=== PATIENT | male | born 1990 | race Caucasian/White ===

== ENCOUNTER 2017-06-22 09:02 | Inpatient (IN) | payer OTHER ==
[~2017-06-22] VITALS: Ht 182.9 cm; Wt 64.9 kg
--- NOTE | ~2017-06-22 | INDIVTXPLN ---
"PATIENT: GARY RDZ T | | [facility] UNIT #: [id number] | [address] AGE/SEX: 27 M : [birth year] | [address] | [place] [phone] ADMIT/REG DATE: 06/22/17 | ROOM: A.8 LOC: ADTC | ADTC | Individualized Treatment Plan Date: 05 JULY 2017 Problem Statement/Issue Identified: GARY NEEDS TO IDENTIFY POTENTIAL RELAPSE TRIGGERS AND ISSUES. Goal: GARY WILL DEVELOP A PLAN TO DEAL WITH THESE TRIGGERS/ISSUES EFFECTIVELY TO AVOID RELAPSE. Objectives/Activities to achieve goal: 1. Gary will complete RELAPSE PREVENTION packet identifying specific triggers and a plan to deal with them effectively. He will process his work with his primary counselor. Due Date: Complete: Incomplete: 2. Gary will contact his sponsor each week to let him know how treatment is progressing. Due Date: Complete: Incomplete: Client signature Date Counselor signature Date Outcome/Measurement of Progress Towards Goal: Counselor's signature Date "
--- NOTE | ~2017-06-22 | INDIVTXPLN ---
"PATIENT: GARY RDZ T | | [facility] UNIT #: [id number] | [address] AGE/SEX: 27 M : [birth year] | [address] | [place] [phone] ADMIT/REG DATE: 06/22/17 | [facility]: [facility] LOC: ADTC | ADTC | Individualized Treatment Plan Date: 05 JULY 2017 Problem Statement/Issue Identified: GARY HAS HURT AND ANGER RESULTING FROM UNRESOLVED FAMILY OF ORIGIN ISSUES. Goal: GARY WILL IDENTIFY AND PROCESS THESE FEELINGS TO ENCOURAGE HEALING. Objectives/Activities to achieve goal: 1. Gary will write FEELINGS LETTERS to mom and to dad. He will process his work with his primary counselor and peer group. Due Date: Complete: Incomplete: 2. Gary will write a FEELINGS LETTER to his Significant Other and will process it with her in Family Group. Due Date: Complete: Incomplete: Client signature Date Counselor signature Date Outcome/Measurement of Progress Towards Goal: Counselor's signature Date "
--- NOTE | ~2017-06-22 | CLPRLASSUM ---
"PATIENT: LUCIAN RDZ T | | [facility] UNIT #: [id number] | [address] AGE/SEX: 27 M : 89 | [address] | [place] [phone] ADMIT/REG DATE: 06/22/17 | ROOM: [facility] LOC: ADTC | ADTC | Client Problem List/Assessment Summary Date: 29 JUNE 2017 Problems identified by the client: PRIMARY SUPPORT GROUP, LEGAL, OCCUPATIONAL, FAMILY OF ORIGIN ISSUES Problems identified by significant others: SAME ABOVE Client's Strengths as Identified by Client: POSITIVE, FAST LEARNER Problem List: Verna EPSTEIN'S ONGOING CHEMICAL ABUSE HAS RESULTED IN PROBLEMS IN ALL AREAS OF HIS LIFE AND HAVE LED HIM TO CRIMINAL THINKING, INCARCERATION, [facility] [place] [facility] AND A LEGAL RECORD. Verna EPSTEIN WILL NEED TO IDENTIFY POTENTIAL TRIGGERS/ISSUES AND DEVELOP A PLAN ON HOW TO DEAL WITH THEM TO AVOID A RELAPSE. Verna EPSTEIN VERBALIZES GUILT AND SHAME FOR HIS ONGOING USE THAT HAS CAUSED PAIN AND WORRY FOR HIS SIGNIFICANT OTHER. Verna EPSTEIN HAS UNRESOLVED HURT AND ANGER RESULTING FROM FAMILY OF ORIGIN ISSUES. Code Mitchell: T: to be addressed during course of treatment O: problem noted, expected to resolve itself with abstinence--specific tx plan not required R: problem noted, will be referred upon discharge PRIMARY COUNSELOR: MARIA DE JESUS ROCHA [facility]"
--- NOTE | ~2017-06-22 | TXPLANREV ---
"PATIENT: LUCIAN RDZ | | [facility] UNIT #: [id number] | [address] AGE/SEX: 27 M : 89 | [address] | [place] [phone] ADMIT/REG DATE: 06/22/17 | ROOM: [facility] LOC: ADTC | ADT | Treatment Plan/Staffing Review Date: 06 JULY 2017 Treatment plan was reviewed and determined appropriate as written: TREATMENT PLAN IS APPROPRIATE WRITTEN. Treatment plan was reviewed and the following changes/addition/deletions are necessary: ADDITIONAL TX PLANS WERE CREATED TO ADDRESS FAMILY OF ORIGIN ISSUES, RELAPSE & GUILT AND SHAME. Discharge plans were reviewed and determined appropriate as previously documented: NONE DOCUMENTED PREVIOUSLY. Discharge plans were reviewed and determined to be as follows: CLIENT AGREES TO DO RECOMMENDED AFTERCARE AT [facility] OFFICE WITH RYLEY. TENTATIVE DISCHARGE DATE IS 18 JUNE 2017 FOLLOWING FAMILY GROUP SO THAT CLIENT'S SIGNIFICANT OTHER DOESN'T HAVE TO MAKE ANOTHER TRIP FROM [facility] ON 06/19. Other pertinent issues discussed during this staffing review include: CLIENT IS COMPLIANT AND SHOWS THAT HE IS GAINING INSIGHT AND UNDERSTANDING OF THE POWER OF HIS ADDICTION. CLIENT HAS COMPLETED STEP ONE AND WILL PROCESS ASSIGNED PAGES WITH HIS PEERS. CLIENT IS WORKING ON FEELINGS LETTERS & SPIRITUALITY. HE HAS PROVEN TO BE A GOOD ROLE MODEL. Staff Present: MAUDE LEE PRIMARY COUNSELOR: MARIA DE JESUS ROCHA [facility] Client Signature Counselor Signature Date Time "
--- NOTE | ~2017-06-22 | RESCARESUM ---
"PATIENT: LUCIAN RDZ T | | [facility] UNIT #: [id number] | 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 CLIENT APPEARED TO GAIN MORE INSIGHT AND BETTER UNDERSTANDING OF THE POWER OF ADDICTION TO DISTORT HIS THINKING AND PERCEPTIONS. Continued Obstacles to Sobriety/Relapse Issues: LACK OF HEALTHY FAMILY SUPPORT; MOM IS STILL ACTIVE METH ADDICT. SIGNIFICANT OTHER DID ATTEND FAMILY EDUCATION SESSIONS. APPEARS SUPPORTIVE. Family Issues Addressed: CLIENT WROTE FEELINGS LETTERS TO EACH OF HIS PARENTS, BUT NEITHER WAS IN ATTENDENCE. Y Individual Therapy Y Group Therapy Y Educational Series on Substance Abuse Y Parents/Significant Others Attended Family Program N Acute Medical Problems During the Course of Treatment Y Accepting of Substance Abuse Problem Completed AA Step # ONE During This Level of Care Significant Incidences During Treatment: NONE Reason For Discharge: Y Completed Residential TX Goals and Ready For Next Level of Care Continuing Care Plan/Recommendations: Y Sponsor Y AA Meetings/NA Meetings Y Outpatient Y [facility] 4-6 MONTHS (SEE SPECIFICS BELOW) PATIENT: LUCIAN RDZ | | [facility] UNIT #: [id number] | [address] AGE/SEX: 27 M : 89 | [address] | [place] [phone] ADMIT/REG DATE: 06/22/17 | [facility] LOC: ADTC | ADT | Summary of Residential Care Specific Continuing Care Plan: CLIENT WILL ENTER [facility] UPON DISCHARGE FROM [facility]. HE WILL RESIDE THERE AND COMPLY WITH ALL GUIDELINES FOR THE NEXT FOUR TO SIX MONTHS. CLIENT WILL COMPLETE OUTPATIENT AFTERCARE, RECOMMENDED, AT [facility] ATTENDING BOTH INDIVIDUAL AND GROUP SESSIONS SCHEDULED. CLIENT WILL ATTEND AT LEAST THREE AA/NA MEETINGS PER WEEK DURING PHASE ONE OF DRUG COURT AND TWO EACH WEEK THERE AFTER. HE WILL HAVE ONE ON ONE CONTACT WITH HIS SPONSOR AT LEAST TWO TIMES EACH WEEK DURING THE DURATION OF HIS OUTPATIENT TREATMENT. PRIMARY COUNSELOR: MARIA DE JESUS ROCHA [facility]"
--- NOTE | ~2017-06-22 | INDIVTXPLN ---
"PATIENT: GARY RDZ T | | [facility] UNIT #: [id number] | [address] AGE/SEX: 27 M : 89 | [address] | [place] [phone] ADMIT/REG DATE: 06/22/17 | ROOM: [facility] LOC: ADTC | ADTC | Individualized Treatment Plan Date: 29 JUNE 2017 Problem Statement/Issue Identified: GARY'S ONGOING CHEMICAL ABUSE HAS RESULTED IN PROBLEMS IN ALL AREAS OF HIS LIFE AND HAS PRODUCED CRIMINAL THINKING THAT HAS LED TO LEGAL CHARGES, INCARCERATION AND [facility] [place] [facility]. Goal: GARY WILL BE WILLING TO EXAMINE THE NEGATIVE CONSEQUENCES OF HIS ALCOHOL/DRUG USE AND WORK TO LIVE HIS LIFE WITHOUT RELYING ON CHEMICALS. Objectives/Activities to achieve goal: 1. Gary will complete GETTING STARTED IN TREATMENT identifying his feelings about being in treatment and sharing a brief life history. Gary will process his work with his primary counselor and selected pages with his peer group. Due Date: Complete: Incomplete: 2. Gary will read My Mega BookstoreArianaRecorridoIN highlighting those characteristics/behaviors that he can relate to in his own life patterns. He will discuss these and any insights gained with his primary counselor. Due Date: Complete: Incomplete: 3. Gary will complete an honest and thorough STEP ONE. He will identify specific examples of preoccupation, high risk behaviors and values compromised. Gary will process his work and any insight gained with his primary counselor and selected pages with his peer group. Due Date: Complete: Incomplete: 4. Gary will complete MY CHANGE PLAN. He will process his work and any insight gained with his primary counselor. Due Date: Complete: Incomplete: Client signature Date Counselor signature Date Outcome/Measurement of Progress Towards Goal: Counselor's signature Date "
--- NOTE | ~2017-06-22 | TXPLANREV ---
"PATIENT: LUCIAN RDZ | | [facility] UNIT #: [id number] | [address] AGE/SEX: 27 M : 89 | [address] | [place] [phone] ADMIT/REG DATE: 06/22/17 | ROOM: [facility] LOC: ADTC | ADTC | Treatment Plan/Staffing Review Date: 2016 Treatment plan was reviewed and determined appropriate as written: TREATMENT PLAN IS APPROPRIATE WRITTEN. Treatment plan was reviewed and the following changes/addition/deletions are necessary: NO ADDITIONAL PLANS HAVE BEEN CREATED. Discharge plans were reviewed and determined appropriate as previously documented: TENTATIVE DISCHARGE DATE IS 2016. Discharge plans were reviewed and determined to be as follows: CLIENT HAS APPLIED FOR A BED AT THE [facility] AND NEEDS TO COME UP WITH A DEPOSIT TO HOLD THE BED. Other pertinent issues discussed during this staffing review include: CLIENT APPEARS TO BE COMPLIANT AND MAKING PROGRESS. CONVERSATION WITH DRUG COURT DIRECTOR MAINE BRAY INDICATED THAT THEY WANTED HIM TO GO TO SOBER LIVING FOLLOWING COMPLETION OF RESIDENTIAL TREATMENT RATHER THAN BACK TO [place]. CLIENT IS DISAPPOINTED BUT COMPLIANT AND HAS MADE APPLICATION. HE IS WORKING ON FEELINGS LETTERS & STINBONOE THINKIN. Staff Present: BAILEY VILLEGAS PRIMARY COUNSELOR: MARIA DE JESUS ROCHA [facility] Client Signature Counselor Signature Date Time "
--- NOTE | 2017-06-22 14:43 | NUR ---
Admit Note: Client is 27 y/o single male living in [place] with significant other. His DOC is meth and was referred by Drug Court. Said he hasn't meth in 1 year. Smoked 1 bowl of pot in February and drank 6 shots of vodka 1 week ago. His significant other is expected to be in family sessions. Client stated that father lives in [place] and mother is in active addiction and he's not sure where she is.
--- NOTE | 2017-06-22 21:54 | NUR ---
Education: 1 hour lecture given by counselor on "resentments"
--- NOTE | 2017-06-22 23:24 | NUR ---
Client did beads for rec, Guided Meditation, and attended the on unit A.A.Meeting. SE: First day in Treatment
--- NOTE | 2017-06-23 04:47 | NUR ---
Bed Note: Client was in bed, motionless, and in no distress at all bed checks
--- NOTE | 2017-06-23 09:57 | NUR ---
Tech Notes: Client is working on BB
--- NOTE | 2017-06-23 10:00 | NUR ---
Client was oriented to purpose and rules of group.
--- NOTE | 2017-06-23 11:30 | NUR ---
PEER REVIEW 1.5 HRS. Client participated in peer review exercise and took risk to give honest and direct feedback. Client did an excellent job for his first time.
--- NOTE | 2017-06-23 13:11 | NUR ---
Education note: Client attended speaker for education.
--- NOTE | 2017-06-23 15:00 | NUR ---
SPIRITUALITY 1 HR: Clt participated in an exercise in the park, along with filling out a paper on what a Higher Power means to them.
--- NOTE | 2017-06-23 15:28 | NUR ---
IS 1 HR. Client was seen due to his primary counselor's absence. He was oriented to the treatment process. He verbalized an understanding of initial treatment plan, signed and was given a copy. He reports he has been in drug court approx. 9 mos. He completed OP treatment at [facility] in [place]. He admits he has continued to use alcohol. He identified drug of choice to be meth and has abstained from it for approx. 1 year. Last use of marijuana was 02/28/17 when he was drinking. He identifies his girlfriend as support and other family live out of state. Client was given permission to call her about visiting hours. He was advised to begin work on HOW TO GET STARTED IN TREATMENT and reading from the big book.
--- NOTE | 2017-06-23 18:42 | NUR ---
Education note: Client did one hour of education on the disease concept.
--- NOTE | 2017-06-23 22:52 | NUR ---
Tech Note: Client Walked a mile for rec and attended the on unit N.A.Meeting. SE: Peer Review/Walks
--- NOTE | 2017-06-24 04:13 | NUR ---
Bed bote; Client was motionless with eyes closed at all bed checks.
--- NOTE | 2017-06-24 12:19 | NUR ---
Group 1.5 Ratio 1:12/Topics today were orientating a new member to group rules and goals and grumbling about the legal system not being fair. Client shared what got him here and his initial plans to complete drug court and moving away from [place].
--- NOTE | 2017-06-24 15:10 | NUR ---
INDIVIDUAL SESSION 1 HR: Met with this client for the first time and welcomed him to treatment. It is his first treatment. Client identifies meth as his DOC. Client was referred by [facility]. He has been in [place] for 9 months and has had three positive UAs. Client very receptive and displays appropriate guilt and shame. Client said both parents are chemically dependent, splitting up when client was 6 y/o. Client has a girlfriend that he was living with so is apparently approved by [place]. Client encouraged to work on GETTING STARTED IN TREATMENT packet. Appointment 06/28.
--- NOTE | 2017-06-24 15:42 | NUR ---
Client participated in Spiritual Enrichment. Client went for an outdoor walk for afternoon exercise. Client stated that he is working on, "How to Get Started in Treatment."
--- NOTE | 2017-06-24 15:52 | NUR ---
Education: Client attended a session hosted by members of the recovery community who shared their experience, strength and hope.
--- NOTE | 2017-06-24 16:10 | NUR ---
Step education 1 hr/ Focus was on step 9 making direct amends. Each person answered a set of questions on paper and then we discussed. The relationship that bothers him most is with his grandparents who disowned him and with his mom who he used with. He said he feels he has forgiven his mom.
--- NOTE | 2017-06-24 18:14 | NUR ---
FAMILY CONTACT: Talked with client's Significant Other. She will arrange for time off but will not likely start until 07/15 due to work.
--- NOTE | 2017-06-24 18:24 | NUR ---
Education: 1 Hour. Client attended Jose Lara video " Unhealthy Boundaries."
--- NOTE | 2017-06-24 22:22 | NUR ---
Tech note : Client went on a mile and a half long walk, participated in guided meditation and went to an onsite AA meeting. SE; Group
--- NOTE | 2017-06-25 04:21 | NUR ---
tech note: client was motionless in no distress at all bed checks.
--- NOTE | 2017-06-25 12:00 | NUR ---
Group 1.5 hr/ 22:2 Clients had big group to discuss what is giving and getting feedback, group dynamics and how to listen and not get defensive. Some role-playing was used by counselors. This client was attentive and said he likes the peer but this group was pretty intense and uncomfortable.
--- NOTE | 2017-06-25 14:00 | NUR ---
Afternoon Group, 1.0 hours, 11/18 ratio, Client attended and actively participated in group which consisted of homework shared and discussion of taking suggestions from others while in treatment. Client listened while others shared.
--- NOTE | 2017-06-25 15:25 | NUR ---
Tech Note: Client attended speaker meeting with volunteer Jaime Reddy Client is working on Getting Started.
--- NOTE | 2017-06-25 20:57 | NUR ---
Tech note: client watched tv and movies Attended optional offsite AA meeting SE:group
--- NOTE | 2017-06-26 04:30 | NUR ---
Bed note: client was in bed with eyes closed and no distress at all bed checks.
--- NOTE | 2017-06-26 13:13 | HP ---
ADMIT: 06/22/2017 RM/LOC: [facility] MR#: [id number] [address] [facility] [address] [place] [id number] LU[address]Z [address] [place] [id number] History and Physical SEX: M AGE: 27 : 1990 DATE OF SERVICE: CHIEF COMPLAINT: Drug problem. CLINICAL HISTORY: The patient is a 27-year-old white male, from [place], [place], who was admitted to the residential care program as a portion of his Drug Court agreement. The patient was arrested for multiple charges including predominantly possession of methamphetamine as well as felony attempted strangulation and domestic violence. He opted to go through Drug Court and actually has been clean and sober now for approximately 1 year, having not used any methamphetamine since June of 2016, but did relapse on 1 occasion on pot in February of 2017, and recently relapsed on alcohol. He comes to treatment for the first time having had no prior treatment. He notes he has been attending NA and AA for the past year as a portion of his Drug Court agreement. He readily admits that he has a drug problem. He notes that methamphetamine is his drug of choice. He first started using meth at age 23 and was a daily user from age 23 to age 26, typically doing a half to 1 g per day, usually smoking it. He denies any IV drug use. He notes his second drug of choice is marijuana. He first started smoking pot at age 17 and was a daily pot user from age 17 to 23. He notes his pot use dropped off significantly after he started using meth and was only using pot occasionally, used to smoke up to as much as a quarter ounce per week. He notes that alcohol would be his third drug of choice. In the past, he used to drink once or twice a week. He notes since he has been on Drug Court, he has been trying not to drink, but he has drank on about 3 occasions over the past year. In addition to his meth, pot, and alcohol use, he notes he has tried cocaine once at age 20. He experimented with acid once at age 19. He notes over the last couple of years of his meth use, he has been abusing Adderall on about 10 to 12 occasions over 2 years' time. Usually, was using Adderall to supplement the meth that he was on. He notes he has had no prior treatment. He has had previous legal charges related to his drug use and has been in senior living at least 5 or 6 times over the last 5 years, and as noted, he comes to treatment as a portion of his Drug Court agreement. Treatment precipitated by his recent relapse on alcohol and marijuana. PAST MEDICAL HISTORY: Previous hospitalizations: None. Operations: None. Current medications: None. Allergies: He is allergic to penicillin and sulfa drugs. Medical illnesses: He denies any chronic health problems. Denies any long- term medical illnesses. He is noted to be a smoker, typically smoking a pack a day, but denies any respiratory complaints. REVIEW OF SYSTEMS: A 12-point review of systems is negative except for his ongoing illicit drug use as well as his cigarette smoking. ADMIT: 06/22/2017 RM/LOC: [facility] MR#: [id number] [address] [place] [id number] [address] [address] History and Physical SEX: M AGE: 27 : 1990 SOCIAL HISTORY: The patient is single. He has been with his current girlfriend for the past 4 years. They had been living together up until [address] made him moved into the [facility] in [place] 3 months ago, where he has been residing for the past 3 months. The patient currently has been working 2 jobs. 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 He works part-time at [employer]. 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 He notes he has been unemployed for the past year as a portion of his Drug Court agreement. The patient notes he dropped out of high school in the 11th grade, but he did get his GED. FAMILY HISTORY: The patient notes his parents when he was age 6. He has 2 full siblings, a brother and a sister. He has 2 half-siblings. He notes his father lives in [place], [place], and is an active alcoholic. He notes his mother lives in [place]; she is an active meth addict. There is a strong history of substance abuse and chemical dependency on both sides of his family. PHYSICAL EXAMINATION: VITAL SIGNS: Temp is 97.5, pulse 59, respirations 14, and blood pressure 109/70. Height 6 feet, weight 140 pounds. GENERAL: The patient is a very thin 27-year-old white male, who appears younger than his stated age. He is in no acute distress. He is oriented x3. HEENT: Reveals his ears to be clear. Nose and throat are noninflamed. Dentition is in poor repair. Very poor dentition. Typical meth mouth with periodontal disease and numerous carious teeth. NECK: Supple. Thyroid not enlarged. No cervical adenopathy. LUNGS: Noted to be clear. HEART: Regular rhythm without murmur. ABDOMEN: Soft. Nontender. No masses. No organomegaly. No hernias. Bowel sounds are normoactive. He has no CVA or suprapubic tenderness. EXTREMITIES: Today are noted to have no edema. No clubbing or cyanosis. No calf tenderness. NEUROLOGICAL: He is intact with no focal deficits. Balance and gait are normal. MENTAL STATUS EXAMINATION: He is pleasant, cooperative. Affect is appropriate. No bizarre ideation. No delusions. No hallucinations. No significant depressive symptoms at this time. He is oriented x3. Insight is limited. Judgment is limited. ADMIT: 06/22/2017 RM/LOC: A.[address] [facility] MR#: [id number] [address] [id number] [address] [place] [id number] History and Physical SEX: M AGE: 27 : 1990 ASSESSMENT AT THE TIME OF ADMISSION: 1. Stimulant/methamphetamine use disorder, severe. 2. Cannabis use disorder, severe. 3. Alcohol use disorder, moderate. 4. Tobacco use disorder. 5. Personality disorder, not otherwise specified. PLAN: Plan is to admit the patient to the residential care program with a tentative discharge date of 07/20/2017. Upon completion of treatment, would strongly encourage the patient to go to a fpc house. He would strongly benefit from the support and structure of a sober living community. Fabien Patel MD/ [facility] JOB #: [id number] CC: Fabien Patel, Attending Physician FAMILY PHYSICIAN, Family Physician
--- NOTE | 2017-06-26 15:25 | NUR ---
Tech notes: Client attended NA panel and is working on BB
--- NOTE | 2017-06-26 20:51 | NUR ---
Tech Note: Client played "5 Second Rule Game" for Recreation and attended an outside AA Speaker Meeting at [address] S/E: Visit
--- NOTE | 2017-06-27 04:13 | NUR ---
tech note: client was motionless in no distress at all bed checks.
--- NOTE | 2017-06-27 16:25 | NUR ---
Tech Note: Client participated in LogoGarden Book study and is working on the LogoGarden Book.
--- NOTE | 2017-06-27 23:52 | NUR ---
TECH NOTE: Client attended AA Panel, participated in community clean, watched TV and movies S/E: AA Panel
--- NOTE | 2017-06-28 04:59 | NUR ---
BED NOTE: Client lying motionless, with eyes closed at all bedchecks.
--- NOTE | 2017-06-28 10:29 | NUR ---
Tech Notes: Client is working on BB
--- NOTE | 2017-06-28 12:55 | NUR ---
Education/1 hr/ Focused on looking at clients character defects and we read "The Wall" and then they each marisa their wall and explained them to the group. This client participated.
--- NOTE | 2017-06-28 14:13 | NUR ---
Education Note: Client watched video for education,
--- NOTE | 2017-06-28 15:34 | NUR ---
Recovery 101, 1.0 hours, Client attended and actively participated in Recovery 101 which focused on feeling special or unique from the book 12 Things That Mess Up Recovery.
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
--- NOTE | 2017-06-28 17:39 | NUR ---
TRAUMA NOTE: Client denies any trauma.
--- NOTE | 2017-06-28 18:32 | NUR ---
Education note: 1 hour lecture on communication given by counselor
--- NOTE | 2017-06-28 23:07 | NUR ---
Tech note: played catchphrase for rec and attended NA meeting SE: meeting with counselor
--- NOTE | 2017-06-29 03:50 | NUR ---
Bed note: client was in bed with eyes closed and no distress at all bed checks.
--- NOTE | 2017-06-29 10:49 | NUR ---
Tech Note: Client participated in light stretching for morning exercise. Client stated that he is working on Step One.
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
--- NOTE | 2017-06-29 14:16 | NUR ---
Education: Client viewed a video presentation, "The Enablers."
--- NOTE | 2017-06-29 16:25 | NUR ---
Relapse prevention, 1.0 hours, Client attended and actively participated in relapse prevention education which focused on developing a relapse prevention plan.
--- NOTE | 2017-06-29 19:41 | NUR ---
Education: 1 hour lecture on "Step 1" given by counselor
--- NOTE | 2017-06-29 23:19 | NUR ---
Client worked with dimas for recreation, participated in guided meditation, attended the on unit A.A.Meeting.
--- NOTE | 2017-06-30 04:10 | NUR ---
Bed Note: Client was in bed and motionless with no sign of distress at all bed checks
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
--- NOTE | 2017-06-30 14:54 | NUR ---
Tech Note: Client participated in light stretching for morning exercise and went on an outdoor walk in the afternoon. Client stated that he is working on Step One.
--- NOTE | 2017-06-30 15:00 | NUR ---
SPIRITUALITY 1 HR: Clt participated in a quiz about spiritual principals and interacted with the grp.
--- NOTE | 2017-06-30 15:08 | NUR ---
Education: Client saw the video, "Chalk Talk" by Father Jet.
--- NOTE | 2017-06-30 23:11 | NUR ---
Tech note : Client went on a mile and a half walk for rec and attended an onsite NA meeting. SE; group
--- NOTE | 2017-07-01 04:28 | NUR ---
Bed note : Client was in bed motionless with eyes closed at all bed checks.
--- NOTE | 2017-07-01 10:24 | NUR ---
Tech note: Client is working on Step 1
--- NOTE | 2017-07-01 11:51 | NUR ---
Group 1.5 Hr Ratio 1:12/Topics today were orientating new members to group rules and goals and talking about what is on everyones mind. Client shared he has court on his mind and how much fpc sanction he is facing from drug court.
--- NOTE | 2017-07-01 13:11 | NUR ---
Education note: Client attended education speaker
--- NOTE | 2017-07-01 17:11 | NUR ---
Education 1 hr/Focus was on step 10 taking personal inventory. They completed a worksheet and then we discussed. This client participated.
--- NOTE | 2017-07-01 18:52 | NUR ---
Education: 1 Hour. Client attended "Healthy Family" video.
--- NOTE | 2017-07-01 23:35 | NUR ---
TECH NOTE: Client played a game for Recreation, participated in Guided Meditation and attended in house AA Meeting. S/E: Recreation
--- NOTE | 2017-07-02 05:07 | NUR ---
tech note: client was motionless in no distress at all bed checks.
--- NOTE | 2017-07-02 12:21 | NUR ---
INDIVIDUAL SESSION 1 HR: Client processing from STEP ONE. He is doing well with this. Client providing specific examples of powerlessness and unmanagability. Very open. Client describes energy spent not only on finding an ongoing supply of meth, but also from hiding it from his girlfriend. Client had difficulty holding a job until he got in to drug court. Is hopeful but afraid of the future. Really wanting this to be his last treatment. Client will continue to work on STEP ONE. Was assigned FEELINGS LETTERS to mom, dad and significant other. Session 07/05
--- NOTE | 2017-07-02 13:00 | NUR ---
PEER REVIEWS 1.5 HRS: Clt participated in peer reviews and took a risk to give open and honest feedback to those receiving a review.
--- NOTE | 2017-07-02 15:49 | NUR ---
Tech Note: Client went on outdoor walk, for exercise, attended a speaker session on Cross Addiction (Guero Nelson) and is working on Step 1.
--- NOTE | 2017-07-02 23:28 | NUR ---
Tech Note: Client visited with peers and attended the A.A. Step Meeting at [address]. Client redirected for having mckeon on head SE: Peer Group
--- NOTE | 2017-07-03 04:16 | NUR ---
tech note: client was motionless in no distress at all bed checks.
--- NOTE | 2017-07-03 16:19 | NUR ---
Tech Note: Client went to offsite AA meeting and is working on Step 1 and Feelings Letters. He had a visitor.
--- NOTE | 2017-07-03 21:23 | NUR ---
tech note:worked on beaded projects for rec and walked to AA meeting. Watched TV and movies SE:TV
--- NOTE | 2017-07-04 04:50 | NUR ---
bed note: client was in bed with eyes closed and no distress at all bed checks.
--- NOTE | 2017-07-04 16:08 | NUR ---
Tech Note: Client participated in Big Book study and is working on Feelings Letters. He had a visitor.
--- NOTE | 2017-07-04 23:46 | NUR ---
Tech note: client attended AA panel, Participated in Community clean and watched tv and movies. SE:visits
--- NOTE | 2017-07-05 04:10 | NUR ---
Bed Note: client was in bed with eyes closed and no distress at all bed checks.
--- NOTE | 2017-07-05 10:06 | NUR ---
Tech notes: Client is working on Fl's
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
--- NOTE | 2017-07-05 13:36 | NUR ---
Education note: Client watched a video for education today.
--- NOTE | 2017-07-05 16:00 | NUR ---
Recovery 101 1 hr/ Clients all were given highlighters and discussed topics in the Big Book on: anger, resentments, 12 promises, forgiveness, 1/2 measures, honesty, selfishness and fear. Discussed that AA is grandpa to NA so offers alot of wisdom.
--- NOTE | 2017-07-05 17:52 | NUR ---
INDIVIDUAL SESSION 1 HR: Client processing from STEP ONE. It appears he has done well with this. Client has identified multiple specific examples of powerlessness and unmanagability in his addiction. He owns guilt and shame for the hurt he has caused his significant other and his dad. He was encouraged to process PAGES 10 & 11 in group. Client is working on FEELINGS LETTERS. session 07/08.
--- NOTE | 2017-07-05 17:59 | NUR ---
FAMILY NOTE: Client's SO will start FAMILY ED 07/15.
--- NOTE | 2017-07-05 18:11 | NUR ---
Education: 1 Hour. Client attended "Feelings" lecture.
--- NOTE | 2017-07-05 23:53 | NUR ---
tech note: Client played Pictionary for recreation & attended onsite NA meeting. SE: Group.
--- NOTE | 2017-07-06 04:26 | NUR ---
tech note: client was motionless in no distress at all bed checks.
--- NOTE | 2017-07-06 11:14 | NUR ---
Tech Note: Client participated in light stretching for morning exercise client stated that he is working onwriting feelings letter.
--- NOTE | 2017-07-06 11:23 | NUR ---
A.M. 1.5 hr res group/Group heard some how to get started assignments and a step one. One group member shared a pros and cons list of being in recovery verses not. Also oriented 2 new people to the group rules. This client shared pages 10-11 of step one and did a fair job. He heard he needs to let me be counselor as he tried take over the group more than once.
--- NOTE | 2017-07-06 14:47 | NUR ---
Education: Client saw the video,"It Can't Happen to Me."
--- NOTE | 2017-07-06 15:00 | NUR ---
Relapse Prevention, 1.0 hours, Client attended and actively participated in relapse prevention education which focused on relapse justifications and how to avoid them.
--- NOTE | 2017-07-06 18:35 | NUR ---
Education: 1 Hour. Clients attended "Boudaries" Lecture.
--- NOTE | 2017-07-06 23:01 | NUR ---
Tech Note: Client played a pictionary for recreation, participated in Guided Meditation, and attended the on unit A.A.Meeting. SE: A.A.Meeting
--- NOTE | 2017-07-07 04:08 | NUR ---
tech note: client was motionless in no distress at all bed checks.
--- NOTE | 2017-07-07 10:18 | NUR ---
Tech Note: Client participated in light stretching for morning exercise. Client stated that he is working on writing feelings letters.
--- NOTE | 2017-07-07 12:14 | NUR ---
AM GROUP 11:11/08.5 HR: Client and peers heard two peers process from GETTING STARTED IN TREATMENT packets. The younger male doesn't believe that he is dealing with a disease whereas, the older male who processed from his own packet, recognizes the disease but wants to blame others for the way his life has played out. This client was quick to confront younger peer on getting more specific about his behaviors when using. Client also shared how his perception has changed just since he has been here and quoted his own "understanding" of the evidence.
--- NOTE | 2017-07-07 14:10 | NUR ---
Education: Client watched the video, "Pleasure Unwoven."
--- NOTE | 2017-07-07 15:02 | NUR ---
INDIVIDUAL SESSION 1 HR: Client completed processing his STEP ONE. He has done well with this and has identified specific examples of powerlessness and unmanagability. Client shared feelings of guilt and shame for his self-centeredness. I talked with client and had him read over his [place] PLAN REVIEW. Client verbalized willingness to to aftercare in [place] [facility]. He was encouraged to talk to Gil to schedule his appointment. Client will be working on FEELINGS LETTERS.
--- NOTE | 2017-07-07 16:00 | NUR ---
SPIRITUALITY 1 HR. Clients participated in reading, YOU ARE SPECIAL by Vasquez Malcolm. All listed their "stars" (positive messages) and "dots" negative messages) and shared with group and were assigned to also share with primary counselor.
--- NOTE | 2017-07-07 18:43 | NUR ---
Education note: Client recieved education from a garage door installer on sterps 2 & 3
--- NOTE | 2017-07-07 23:21 | NUR ---
Tech note : Client went on a walk for rec and attended an onsite NA meeting. SE: meeting with counselor
--- NOTE | 2017-07-08 04:35 | NUR ---
Bed note : Client was motionless with eyes closed at all bed checks.
--- NOTE | 2017-07-08 11:53 | NUR ---
Group 1.5 Hr Ratio 1:12/Topics today were orientating new members to group rules and goals, making changes and letting down jamil. Client shared how difficult DC is but never said why he is staying in it if it is so hard to do.
--- NOTE | 2017-07-08 15:28 | NUR ---
Tech Note: Client watched 2nd half of Pleasures Unwoven and is working on Feelings Letters.
--- NOTE | 2017-07-08 15:55 | NUR ---
12 step education/1 hr/ Focus was on step 11 "Sought through prayer and meditation to improve our concious contact with God". Had them answer questions on a worksheet and then we discussed. This client said he does pray.
--- NOTE | 2017-07-08 23:24 | NUR ---
Tech Note: Client played a game for recreation, participated in Guided Meditation, and attended the on unit A.A.Meeting. Client was redirected more than once about wearing a mckeon again. Was redirected on Wednesday and Wednesday as well. SE: A.A.Meeting
--- NOTE | 2017-07-09 04:08 | NUR ---
Bed note: client was in bed with eyes closed and no distress at all bed checks.
--- NOTE | 2017-07-09 11:30 | NUR ---
GROUP 1.5 HR/ 11:1 Client heard peers share packets on step 1 and relapse, plus some quiet/new clients shared more about themselves. This client was attentive.
--- NOTE | 2017-07-09 16:26 | NUR ---
Tech Note: Client watched Part 2 of Perez Perez's "Predator" and is working on Feelings Letters.
--- NOTE | 2017-07-09 16:31 | NUR ---
PEER REVIEW 1.5 HRS. Client participated in peer review exercise and took risk to give honest and direct feedback.
--- NOTE | 2017-07-09 20:35 | NUR ---
Tech note: Watched tv and movies. Attended optional offsite AA mtg SE:taco bar
--- NOTE | 2017-07-10 04:37 | NUR ---
Bed note: client was in bed with eyes closed and no distress at all bed checks
--- NOTE | 2017-07-10 16:27 | NUR ---
TECH NOTE: Client attended NA Panel and working on Feelings and took a nap
--- NOTE | 2017-07-10 17:00 | NUR ---
TECH NOTE: It has been an ongoing problem with this client about having his mckeon up in the building and putting his feet up on the furniture. He has been redirected multiple times for this today.
--- NOTE | 2017-07-10 23:06 | NUR ---
Tech note : Client played catch phrase for rec, watched the football game and walked to an offsite AA meeting. SE; football game
--- NOTE | 2017-07-11 04:06 | NUR ---
tech note: client was motionless in no distress at all bed checks.
--- NOTE | 2017-07-11 15:04 | NUR ---
Tech note: Client attended BB study and is working on Fl's
--- NOTE | 2017-07-11 23:44 | NUR ---
Tech Note: Client attended the A.A.Panel and participated in community clean. SE: BBQ
--- NOTE | 2017-07-12 05:10 | NUR ---
tech note: client was motionless in no distress at all bed checks.
--- NOTE | 2017-07-12 16:16 | NUR ---
TECH NOTE: Client attended an off-site AA meeting, watched TV. Client was redirected for feet on the furniture and once for having his mckeon up inside.
--- NOTE | 2017-07-12 23:37 | NUR ---
tech note:client went on walk for recreation & attended onsite NA meeting. Client watched tv. SE: The holiday.
--- NOTE | 2017-07-13 05:23 | NUR ---
Bed note; Client was motionless with eyes closed at all bed checks.
--- NOTE | 2017-07-13 11:30 | NUR ---
GROUP 1.5 HRS. 1:10 Group discussion included progression of addiction, tolerance and the effects on self and others. Peers processed HOW TO GET STARTED IN TREATMENT assignments. This client stated that although he does not have children of his own, he would encourage male peer to placate kids' mom until he can get custody.
--- NOTE | 2017-07-13 14:00 | NUR ---
INDIVIDUAL SESSION 1 HR: Client working on ELENA THINKIN & FEELINGS LETTERS. Client said he has completed a rough draft of letter to SO but needs to rewrite it. Client concerned about letter to mom. Encouraged him to come from his heart. Client processed feelings about DC recommendation for him to stay in [facility]. Client heard that DC had trouble keeping track of him in [place] and want to have more accountability. He is accepting but doesn't like it. Client heard that he "is controlling." Assigned LETTING GO OF THE NEED TO CONTROL. Session 07/15 Family Session.
--- NOTE | 2017-07-13 14:32 | NUR ---
Tech Note: Client participated in light stretching for morning exercise and went on an outdoor walk in the afternoon. Client stated that he is working on writing feelings letters.
--- NOTE | 2017-07-13 14:43 | NUR ---
Education: Client attended a presentation on AIDS, HIV and STDs.
--- NOTE | 2017-07-13 17:49 | NUR ---
Relapse Prevention, 1.0 hours, Client attended and actively participated in relapse prevention education which focused on giving up controll.
--- NOTE | 2017-07-13 18:29 | NUR ---
Education: 1 hour lecture given by counselor on "Co-Dependency"
--- NOTE | 2017-07-13 23:44 | NUR ---
Tech note: Client went for a walk, attended an alumni meeting, participated in guided meditation and went to an onsite AA meeting. SE: AA
--- NOTE | 2017-07-14 04:26 | NUR ---
Bed note: Client was in bed with eyes closed and no distress at all bed checks
--- NOTE | 2017-07-14 10:19 | NUR ---
Tech note: Client is working on Control and Fl's
--- NOTE | 2017-07-14 11:59 | NUR ---
AM GROUP 9:11/08.5 HR: Client and peers assisted to ORIENT A NEW MEMBER TO GROUP GUIDELINES, GOALS AND OBJECTIVES. Clients heard three peers process from STEP ONE & SIGNS OF ADDICTIVE LOVE. Client is quick to jump in and offer feedback even though "he just imagines how they might feel under those particular circumstances." Much of the focus was on children as the innocent victims of this disease. He talked and shared a lot, based on imaginary feelings of what it would be like to be a mom or dad.
--- NOTE | 2017-07-14 14:40 | NUR ---
Education Note: Client attended education by [facility]
--- NOTE | 2017-07-14 15:00 | NUR ---
SPIRITUALITY 1 HR: Clt participated in Spirituality exercise. They were put into 4 groups and each grp wrote a chapter(s) to a story. In the end they were all read, and they did join together nicely and it turned out interesting.
--- NOTE | 2017-07-14 22:57 | NUR ---
Tech note: Client worked on beaded project, celebrated 14 years clean time with staff and attended an onsite NA meeting. SE; NA
--- NOTE | 2017-07-15 00:45 | NUR ---
Education: I hour lecture by [facility] on HIV/STDs/AID. and testing for HIV.
--- NOTE | 2017-07-15 05:24 | NUR ---
Bed note: Client was in bed with eyes closed and no distress at all bed checks.
--- NOTE | 2017-07-15 10:08 | NUR ---
Tech notes: Client is working on Control and Jenny Thinkin
--- NOTE | 2017-07-15 11:43 | NUR ---
Group 1.5 Hr Ratio 1:11/Topics today were sharing and why it is hard and necessary. Client shared he is glad he is in tx and did not think that at first gettinghere.
--- NOTE | 2017-07-15 12:55 | NUR ---
Education note: Client attended speaker Geovany
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
--- NOTE | 2017-07-15 17:38 | NUR ---
FAMILY EDUCATION 3 HRS. Client was accompanied by his S/O. They took part in the discussion on the disease concept. Client shared chemical history and the consequences. He appeared very concerned when S/O was asked about the effects on her which she identified as primarily financial.
--- NOTE | 2017-07-15 23:10 | NUR ---
TECH NOTE: Client went for a walk for recreation and attended AA Meeting S/E: AA
--- NOTE | 2017-07-16 05:26 | NUR ---
BED NOTE: Client was lying in bed, motionless with their eyes closed at all bedchecks:
--- NOTE | 2017-07-16 13:00 | NUR ---
PEER REVIEWS 1.5 HRS: Clt participated in peer review exercise, and received his own. He heard he is hurt, looking for explainations, wants to be in control, analyzes everything, horseplays to cover feelings, has resentments toward his mom and himself, not putting his best effort in, is afraid, his intelligence is working against him. He felt glad, sad and afraid.
--- NOTE | 2017-07-16 13:23 | NUR ---
Group 1.5 Hr Ratio 1:12/Topics today were three Step Ones and a Getting Started packet. Client shared what he could relate to from peers sharing assignments.
--- NOTE | 2017-07-16 13:32 | NUR ---
Tech Note: Client participated in outdoor walk, watched "The Enablers" video and is working on Feelings Letters.
--- NOTE | 2017-07-16 23:51 | NUR ---
Tech Note: Client participated in the reading of the guidelines and watched television/visited with peers. Client also attended the off unit A.A.Meeting SE: A.A.Meeting
--- NOTE | 2017-07-17 04:02 | NUR ---
tech note: client was motionless in no distress at all bed checks.
--- NOTE | 2017-07-17 16:01 | NUR ---
Tech Note: Client went to AA meeting and is working on Feelings Letters.
--- NOTE | 2017-07-17 21:30 | NUR ---
Tech note:Clients worked on [employer] projects and/or watched Apozy for rec, Walked to AA meeting SE:coffee
--- NOTE | 2017-07-18 04:42 | NUR ---
Bed Note: Client was in bed, motionless, with no signs of distress at all bed checks
--- NOTE | 2017-07-18 11:57 | NUR ---
Tech Note: Client went to an off site picnic. Client stated that he is working on writing feelings letters.
--- NOTE | 2017-07-18 20:22 | NUR ---
Tech note: client attended AA panel, watched tv and movies.
--- NOTE | 2017-07-19 05:37 | NUR ---
Bed note: Client was in bed with eyes closed and no distress at all bed checks
--- NOTE | 2017-07-19 10:13 | NUR ---
Tech note: Client is working on [employer]
--- NOTE | 2017-07-19 12:55 | NUR ---
Education note: Client watched one hour video.
--- NOTE | 2017-07-19 14:00 | NUR ---
Morning Group, 1.5 hours, 11/17, Client attended and actively particiapted in group which focused on intorductions and group rules, sharing of homework, and the topic of recovery. Client shared how he came to treatment and how he knows what he needs to do to stay clean.
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
--- NOTE | 2017-07-19 23:47 | NUR ---
TECH NOTE: Client went on a walk for recreation and attended in house NA Meeting: Given his bag to pack for discharge tomorrow. S/E: Getting his coin
--- NOTE | 2017-07-19 23:54 | NUR ---
EDUCATION NOTE: Client attended a one hour education by counselor on "Forgiveness".
--- NOTE | 2017-07-20 03:59 | NUR ---
BED NOTE: Client was lying in bed with eyes closed for all bed checks:
--- NOTE | 2017-07-20 10:49 | NUR ---
Client completed treatment and left the facility taking all personal belongings with him. Discharge instructions were reviewed and a signed copy provided to the client.
== END 2017-07-20 10:08 | disposition home or self-care (01) | DRG 895 ==
LOC: ADTC 13:05
PROVIDERS: ADMIT Family Medicine
DX: F15.20 Other stimulant dependence, uncomplicated (principal); F60.9 Personality disorder, unspecified; F12.20 Cannabis dependence, uncomplicated; F10.20 Alcohol dependence, uncomplicated; F17.210 Nicotine dependence, cigarettes, uncomplicated; Z88.0 Allergy status to penicillin; Z56.0 Unemployment, unspecified; Z88.2 Allergy status to sulfonamides; Z65.3 Problems related to other legal circumstances